=== PATIENT | female | born 1995 | race Asian ===

== ENCOUNTER 2018-10-11 09:29 | Emergency (ER) | payer BC, MEDICAID, OTHER ==
[~2018-10-11] VITALS: Ht 160 cm; Wt 71.0 kg
[2018-10-11] MEDS ORDERED: HYDROcodone/APAP 5/325 TABLET ONE (10:42)
--- NOTE | 2018-10-11 10:47 | NUR ---
PT. IS A & O X 6 WITH C/O A RIGHT LABIAL HEMATOMA AFTER SLIPPING AND FALLING ON A BOX WHILE SHE WAS WORKING. PT. HAS AN ICEPACK IN PLACE TO THE SITE. PT. WAS MEDICATED FOR PAIN ORDERED.
[2018-10-11] MEDS ORDERED: ONDANSETRON ODT 4 MG ONE (10:50)
[2018-10-11] MEDS ORDERED: HYDROcodone/APAP 5/325 TABLET PO ONE (11:00)
[2018-10-11] MEDS ORDERED: ONDANSETRON ODT 4 MG PO ONE (11:00)
--- NOTE | 2018-10-11 11:50 | NUR ---
CARE FOR DC ONLY PROVIDED. PT SITTING UP ON GURNEY, DENIES PAIN WHILE SITTING, "IT HURTS WHEN I STAND UP. NO IV TO DC. REVIEWED DC INSTRUCTIONS WITH PT, UNDERSTANDING VERBALIZED, PT LEFT AMB WITH FAMILY.
[2018-10-11 11:51] VITALS: BP 108/66
== END 2018-10-11 11:53 | disposition home or self-care (01) ==
LOC: ED 11:17
DX: S30.23XA Contusion of vagina and vulva, initial encounter (principal); W19.XXXA Unspecified fall, initial encounter; Y93.89 Activity, other specified; Y92.89 Other specified places as the place of occurrence of the external cause; Y99.8 Other external cause status
CPT/HCPCS: 72190; 99283; Q0162